=== PATIENT | female | born 1980 | race American Indian/Alaskan Native ===

== ENCOUNTER 2019-02-05 19:49 | Emergency (ER) | payer BC ==
[2019-02-05 19:55] VITALS: BP 121/80
[2019-02-05] MEDS ORDERED: DELTASONE PO ONE (20:15)
[2019-02-05] MEDS ORDERED: DUONEB *Not for PRN Use IH ONE (20:15)
--- NOTE | 2019-02-05 20:16 | Event Note ---
ED Screening Note Date of service: 02/06/19 Time: 20:12 ED Screening Note: This is a 39 y.o. F. that presents to the ER with SOB and chest tightness for 3 days. PMH of asthma Patient reports increased use of nebulizer and inhaler. LMP 01/04/2019 This initial assessment/diagnostic orders/clinical plan/treatment(s) is/are subject to change based on patients health status, clinical progression and re- assessment by fellow clinical providers in the ED. Further treatment and workup at subsequent clinical providers discretion. Patient/guardian urged not to elope from the ED as their condition may be serious if not clinically assessed and managed. Initial orders include: CXR Duoneb and prednisone
--- NOTE | 2019-02-05 21:25 | XRay Report ---
CHEST 2 VIEWS INDICATION / CLINICAL INFORMATION: MAIN: SOB and chest tightness SINCE WEDNESDAY. COMPARISON: None available. FINDINGS: SUPPORT DEVICES: None. HEART / MEDIASTINUM: No significant abnormality. LUNGS / PLEURA: No significant pulmonary or pleural abnormality. No pneumothorax. ADDITIONAL FINDINGS: No significant additional findings. IMPRESSION: 1. No acute findings. Signer Name: Jeffy Hammer MD Signed: 02/05/2019 9:20 PM Workstation Name: [id number]
--- NOTE | 2019-02-05 22:00 | Emergency Department Report ---
ED Asthma HPI - General Chief Complaint: Dyspnea/Respdistress Stated Complaint: SOB Time Seen by Provider: 02/05/19 20:12 Source: patient Mode of arrival: Ambulatory Limitations: No Limitations - History of Present Illness Initial Comments: Mrs. Marroquin is a 39 yo with hx of intermittent asthma who presents with shortness of breath wheezing nonproductive cough for 4 days. She has required 8 treatments per day for the last 4 days. Normally she has worsening asthma exacerbations in spring and fall. She is followed by [facility] medicine. I have reevaluated Mrs. Marroquin after she received nebulizer therapy and prednisone in the emergency department. She feels much better. MD Complaint: "asthma attack", shortness of breath -: Gradual, days(s) (4) Asthma History: adult onset (age 28) Severity: moderate Context: other (asthma exacerbations worse during fall and spring with change of weather ) Associated Symptoms: dry cough - Related Data Previous Rx's Medication Instructions Recorded Last Taken Type ALBUTEROL Inhaler (OR & NICU) 2 puff IH QID PRN #1 device 02/05/19 Unknown Rx [ProAir HFA Inhaler] ALBUTEROL NEB's [Proventil 0.083% 2.5 mg IH TID PRN #1 box 02/05/19 Unknown Rx NEBS] predniSONE [Deltasone] 3 tab PO QDAY 4 Days #9 tab 02/05/19 Unknown Rx Allergies Allergy/AdvReac Type Severity Reaction Status Date / Time Penicillins Allergy Unknown Verified 02/05/19 19:54 ED Review of Systems ROS: Stated complaint: SOB Other details as noted in HPI Comment: All other systems reviewed and negative Constitutional: denies: fever, malaise Respiratory: shortness of breath, wheezing ED Past Medical Hx - Past Medical History Previous Medical History?: Yes Hx Asthma: Yes - Family History Family history: hypertension - Social History Smoking Status: Never Smoker Substance Use Type: None - Medications Home Medications: Home Medications Medication Instructions Recorded Confirmed Last Taken Type ALBUTEROL Inhaler (OR & NICU) 2 puff IH QID PRN #1 device 02/05/19 Unknown Rx [ProAir HFA Inhaler] ALBUTEROL NEB's [Proventil 0.083% 2.5 mg IH TID PRN #1 box 02/05/19 Unknown Rx NEBS] predniSONE [Deltasone] 3 tab PO QDAY 4 Days #9 tab 02/05/19 Unknown Rx ED Physical Exam - General Limitations: No Limitations General appearance: alert, in no apparent distress, other (appears comfortable, talkative speaking full word sentences) - Head Head exam: Present: atraumatic, normocephalic - Eye Eye exam: Present: normal appearance - ENT ENT exam: Present: mucous membranes moist - Neck Neck exam: Present: normal inspection, full ROM. Absent: tenderness, meningismus - Respiratory Respiratory exam: Present: normal lung sounds bilaterally. Absent: respiratory distress, wheezes, rales, rhonchi - Cardiovascular Cardiovascular Exam: Present: regular rate, normal rhythm, normal heart sounds. Absent: systolic murmur, diastolic murmur, rubs, gallop - GI/Abdominal GI/Abdominal exam: Present: soft, normal bowel sounds. Absent: distended, tenderness, guarding, rebound - Extremities Exam Extremities exam: Present: normal inspection - Back Exam Back exam: Present: normal inspection - Neurological Exam Neurological exam: Present: alert, oriented X3 - Psychiatric Psychiatric exam: Present: normal affect, normal mood - Skin Skin exam: Present: warm, dry, intact, normal color. Absent: rash ED Course Vital Signs 02/05/19 02/05/19 02/05/19 19:54 19:56 20:11 Temperature 97.6 F 97.6 F Pulse Rate 85 86 Respiratory 22 18 Rate Blood Pressure 121/80 Blood Pressure 121/80 [Right] O2 Sat by Pulse 96 97 Oximetry ED Medical Decision Making - Medical Decision Making Asthma exacerbation improved with treatment in emergency department. Prescribed albuterol MDI, albuterol neb therapy and prednisone burst therapy. Instructed follow-up with her primary care physician at [facility] This week. Critical care attestation.: If time is entered above; I have spent that time in minutes in the direct care of this critically ill patient, excluding procedure time. ED Disposition Clinical Impression: Acute asthma exacerbation Disposition: DC-01 TO HOME OR SELFCARE Is pt being admited?: No Does the pt Need Aspirin: No Condition: Stable Instructions: Asthma (ED) Prescriptions: predniSONE [Deltasone] 3 tab PO QDAY 4 Days #9 tab ALBUTEROL Inhaler (OR & NICU) [ProAir HFA Inhaler] 2 puff IH QID PRN #1 device PRN Reason: Shortness Of Breath ALBUTEROL NEB's [Proventil 0.083% NEBS] 2.5 mg IH TID PRN #1 box PRN Reason: Wheezing Referrals: PRIMARY CARE, [Referring] - 2-3 Days Forms: Work/School Release Form(ED)
== END 2019-02-05 22:08 | disposition home or self-care (01) ==
LOC: ED 19:49
DX: J45.901 Unspecified asthma with (acute) exacerbation (principal); Z88.0 Allergy status to penicillin; Z79.899 Other long term (current) drug therapy
CPT/HCPCS: 71046; 94640; 99284; J7512

== ENCOUNTER 2020-01-03 11:12 | Emergency (ER) | payer BC ==
[2020-01-03 11:30] VITALS: BP 150/72
--- NOTE | 2020-01-03 11:40 | Emergency Department Report ---
ED Back Pain/Injury HPI - General Chief Complaint: Back Pain/Injury Stated Complaint: BACK AND HIP PAIN Time Seen by Provider: 01/03/20 11:31 Source: patient Limitations: No Limitations - History of Present Illness Initial Comments: This is a 39-year-old female nontoxic, well nourished in appearance, no acute signs of distress presents to the ED with c/o of acute on chronic lower back pain. Patient stated that the past 2 days she was moving and developed this pain. Stated has radiation to bilateral hip areas. Patient denies any trauma. Denies any bladder or bowel instability. Patient denies any urinary symptoms. Denies any fever, chills, nausea, vomiting, headache, stiff neck, chest pain or shortness of breath. Patient denies any numbness or tingling. Denies any allergies. MD Complaint: back pain -: days(s) Similar Symptoms Previously: Yes Place: home Radiation: left leg, right leg Severity: mild Severity scale (0 -10): 3 Quality: aching Consistency: intermittent Improves With: immobilization, sitting upright Worsens With: movement, walking Context: while lifting, turning/twisting Associated Symptoms: denies other symptoms. denies: confusion, weakness, chest pain, numbness, difficulty walking, cough, difficulty urinating, diaphoresis, incontinence, fever/chills, constipation, headaches, abdominal pain, loss of appetite, malaise, nausea/vomiting, rash, seizure, shortness of breath, syncope - Related Data Previous Rx's Medication Instructions Recorded Last Taken Type ALBUTEROL NEB's [Proventil 0.083% 2.5 mg IH TID PRN #1 box 02/05/19 Unknown Rx NEBS] Albuterol Mdi (or & Nicu Only) 2 puff IH QID PRN #1 device 02/05/19 Unknown Rx [ProAir HFA Inhaler] predniSONE [Deltasone] 3 tab PO QDAY 4 Days #9 tab 02/05/19 Unknown Rx Cyclobenzaprine [Flexeril] 10 mg PO QHS PRN #10 tablet 01/03/20 Unknown Rx Naproxen 500 mg PO Q12H PRN #12 tablet 01/03/20 Unknown Rx Allergies Allergy/AdvReac Type Severity Reaction Status Date / Time Penicillins Allergy Unknown Verified 01/03/20 11:27 ED Review of Systems ROS: Stated complaint: BACK AND HIP PAIN Other details as noted in HPI Constitutional: denies: chills, fever Eyes: denies: eye pain, eye discharge, vision change ENT: denies: ear pain, throat pain Respiratory: denies: cough, shortness of breath, wheezing Cardiovascular: denies: chest pain, palpitations Endocrine: no symptoms reported Gastrointestinal: denies: abdominal pain, nausea, diarrhea Genitourinary: denies: urgency, dysuria, discharge Musculoskeletal: back pain. denies: joint swelling, arthralgia Skin: denies: rash, lesions Neurological: denies: headache, weakness, paresthesias Psychiatric: denies: anxiety, depression Hematological/Lymphatic: denies: easy bleeding, easy bruising ED Past Medical Hx - Past Medical History Hx Asthma: Yes - Social History Smoking Status: Never Smoker Substance Use Type: None - Medications Home Medications: Home Medications Medication Instructions Recorded Confirmed Last Taken Type ALBUTEROL NEB's [Proventil 0.083% 2.5 mg IH TID PRN #1 box 02/05/19 Unknown Rx NEBS] Albuterol Mdi (or & Nicu Only) 2 puff IH QID PRN #1 device 02/05/19 Unknown Rx [ProAir HFA Inhaler] predniSONE [Deltasone] 3 tab PO QDAY 4 Days #9 tab 02/05/19 Unknown Rx Cyclobenzaprine [Flexeril] 10 mg PO QHS PRN #10 tablet 01/03/20 Unknown Rx Naproxen 500 mg PO Q12H PRN #12 tablet 01/03/20 Unknown Rx ED Physical Exam - General Limitations: No Limitations General appearance: alert, in no apparent distress - Head Head exam: Present: atraumatic, normocephalic - Eye Eye exam: Present: normal appearance - Neck Neck exam: Present: normal inspection, full ROM. Absent: tenderness, meningismus, lymphadenopathy - Respiratory Respiratory exam: Absent: respiratory distress - Cardiovascular Cardiovascular Exam: Present: regular rate - Extremities Exam Extremities exam: Present: normal inspection, full ROM, normal capillary refill. Absent: tenderness - Back Exam Back exam: Present: normal inspection, full ROM, paraspinal tenderness (lumbar paraspinal). Absent: tenderness, CVA tenderness (R), CVA tenderness (L), muscle spasm, vertebral tenderness, rash noted - Expanded Back Exam Expanded Back exam: Absent: saddle anesthesia Back exam: Negative Straight Leg Raising: Left, Right - Neurological Exam Neurological exam: Present: alert, oriented X3, normal gait - Psychiatric Psychiatric exam: Present: normal affect, normal mood - Skin Skin exam: Present: warm, dry, intact, normal color. Absent: rash ED Course Vital Signs 01/03/20 11:29 Temperature 98.2 F Pulse Rate 67 Respiratory 18 Rate Blood Pressure 150/72 O2 Sat by Pulse 100 Oximetry - Reevaluation(s) Reevaluation #1: 01/03/20 11:39 Patient is speaking in full sentences with no signs of distress noted. ED Medical Decision Making - Medical Decision Making This is a 39-year-old female that presents with low back strain. Patient is stable was examined by me. There is no spinal tenderness. There is no cauda equina syndrome during examination. No bladder or bowel instability. Patient is discharged with muscle relaxant and NSAID. Patient was instructed not to operate any machinery while taking muscle relaxant as they cause her drowsiness. Patient was referred to Follow-up with a primary care doctor in 3-5 days or if symptoms worsen and continue return to emergency room as soon as possible. At time of discharge, the patient does not seem toxic or ill in appearance. No acute signs of distress noted. Patient agrees to discharge treatment plan of care. No further questions noted by the patient. Critical care attestation.: If time is entered above; I have spent that time in minutes in the direct care of this critically ill patient, excluding procedure time. ED Disposition Clinical Impression: Low back strain Qualifiers: Encounter type: initial encounter Qualified Code(s): S39.012A - Strain of muscle, fascia and tendon of lower back, initial encounter Disposition: DC- TO HOME OR SELFCARE Is pt being admited?: No Does the pt Need Aspirin: No Condition: Stable Instructions: Low Back Strain (ED), Cyclobenzaprine (By mouth) Additional Instructions: Follow-up with a primary care doctor in 3-5 days or if symptoms worsen and continue return to emergency room as soon as possible. Prescriptions: Cyclobenzaprine [Flexeril] 10 mg PO QHS PRN #10 tablet PRN Reason: Muscle Spasm Naproxen 500 mg PO Q12H PRN #12 tablet PRN Reason: Pain , Severe (7-10) Referrals: PRIMARY CARE, [Referring] - 3-5 Days JENNIFER FATIMA MD [Staff Physician] - 3-5 Days Forms: Work/School Release Form(ED)
== END 2020-01-03 11:45 | disposition home or self-care (01) ==
LOC: ED 11:12
DX: S39.012A Strain of muscle, fascia and tendon of lower back, initial encounter (principal); J45.909 Unspecified asthma, uncomplicated; Z79.899 Other long term (current) drug therapy; Z88.0 Allergy status to penicillin; X58.XXXA Exposure to other specified factors, initial encounter; Y93.89 Activity, other specified; Y92.89 Other specified places as the place of occurrence of the external cause; Y99.8 Other external cause status
CPT/HCPCS: 99282

== ENCOUNTER 2020-05-28 01:32 | Observation (INO) | payer BC, OTHER ==
--- NOTE | 2020-05-28 01:38 | Emergency Department Report ---
Blank Doc - Documentation Documentation: 40-year-old female that presents with chest pain and shortness of breath. 1- This initial assessment/diagnostic orders/clinical plan/ treatment(s) is/are subject to change based on pt's health status, clinical progression and re- assessment by fellow clinical providers in the ED. Further treatment and workup at subsequent clinical provers discretion. Patient/guardians urged not to elope from ED as their condition may be serious if not clinically assessed and managed. 2-cardiac work-up
[2020-05-28 02:05] LABS: Basophils # (Auto) 0.1 K/mm3 (0.0-0.1); Basophils % (Auto) 0.8 % (0.0-1.8); Eosinophils # (Auto) 0.4 K/mm3 (0.0-0.4); Eosinophils % (Auto) 3.3 % (0.0-4.3); Hematocrit 41.5 % (30.3-42.9); Hemoglobin 13.5 gm/dl (10.1-14.3); Lymphocytes % (Auto) 22.3 % (13.4-35.0); Mean Corpuscular HGB Conc 33 % (30-34); Mean Corpuscular Volume 85 fl (79-97); Monocytes # (Auto) 0.7 K/mm3 (0.0-0.8); Monocytes % (Auto) 5.2 % (0.0-7.3); Platelet Count 265 K/mm3 (140-440); Red Blood Count 4.87 M/mm3 (3.65-5.03); Red Cell Distribution Width 14.9 % (13.2-15.2)
[2020-05-28 02:15] LABS: INR 1.25 (0.87-1.13); Partial Thromboplastin Time 25.3 Sec. (24.2-36.6)
[2020-05-28 02:21] LABS: Alanine Aminotransferase 30 units/L (7-56); BUN/Creatinine Ratio 12; Blood Urea Nitrogen 11 mg/dL (7-17); Calcium 8.7 mg/dL (8.4-10.2); Hemolysis Index 31
[2020-05-28 03:17] LABS: Bacteria,Urine 1+ /HPF (Negative); Bilirubin,Urine NEG (Negative); Blood,Urine NEG (Negative); Color,Urine Yellow (Yellow); Mucus,Urine 1+ /HPF; Protein,Urine <15 mg/dL mg/dL (Negative); Urobilinogen,Urine < 2.0 mg/dL (<2.0)
--- NOTE | 2020-05-28 03:19 | XRay Report ---
CHEST 2 VIEWS INDICATION / CLINICAL INFORMATION: Chest Pain. COMPARISON: 02/05/19 FINDINGS: SUPPORT DEVICES: None. HEART / MEDIASTINUM: No significant abnormality. LUNGS / PLEURA: No significant pulmonary or pleural abnormality. No pneumothorax. ADDITIONAL FINDINGS: No significant additional findings. IMPRESSION: 1. No acute findings. No change. Signer Name: Antonio Duran MD Signed: 05/28/2020 3:14 AM Workstation Name: [id number]
[2020-05-28] MEDS ORDERED: NITROGLYCERIN 2% OINT 1 GM TP ONE (04:06)
[2020-05-28] MEDS ORDERED: fentaNYL 100 MCG/2 ML INJ IV ONE (04:06)
[2020-05-28] MEDS ORDERED: ONDANSETRON 4 MG/2 ML INJ IV ONE (04:06)
[2020-05-28] MEDS ORDERED: ASPIRIN 325 MG TAB PO ONE (04:06)
--- NOTE | 2020-05-28 04:13 | Emergency Department Report ---
HPI - General Chief Complaint: Chest Pain Time Seen by Provider: 05/28/20 01:36 - HPI HPI: Room 44 The patient is a 40-year-old female present with a chief complaint of chest pain. The patient states she awakened this evening with substernal chest pain that was dull and sharp in nature. Patient states the pain is been constant but waxes and wanes. The patient currently gives her pain a score of 3/10. Patient states she has had shortness of breath and nausea without vomiting associated with her chest pain. Patient denies diaphoresis. Patient denies history of fever or cough. The patient states she took 2 aspirin prior to arrival but cannot recall the doses. The patient states she has a mother who had KS at age 56. The patient states she recently had 2 family members . Patient states she is never had a stress test or cardiac catheterization ED Past Medical Hx - Past Medical History Previous Medical History?: Yes Hx Asthma: Yes - Surgical History Past Surgical History?: Yes Hx Breast Surgery: Yes (biopsy-benign) - Family History Family history: no significant - Social History Smoking Status: Never Smoker Substance Use Type: None (Denies illicit drug use), Alcohol (Occasional) - Medications Home Medications: Home Medications Medication Instructions Recorded Confirmed Last Taken Type ALBUTEROL NEB's [Proventil 0.083% 2.5 mg IH TID PRN #1 box 02/05/19 Unknown Rx NEBS] Albuterol Mdi (or & Nicu Only) 2 puff IH QID PRN #1 device 02/05/19 Unknown Rx [ProAir HFA Inhaler] predniSONE [Deltasone] 3 tab PO QDAY 4 Days #9 tab 02/05/19 Unknown Rx Cyclobenzaprine [Flexeril] 10 mg PO QHS PRN #10 tablet 01/03/20 Unknown Rx Naproxen 500 mg PO Q12H PRN #12 tablet 01/03/20 Unknown Rx ED Review of Systems ROS: Stated complaint: CHEST PAIN Other details as noted in HPI Constitutional: denies: diaphoresis Eyes: denies: eye pain ENT: denies: throat pain Respiratory: shortness of breath Cardiovascular: chest pain Endocrine: no symptoms reported Gastrointestinal: nausea. denies: vomiting Genitourinary: denies: dysuria Musculoskeletal: denies: back pain Neurological: denies: headache Physical Exam - Physical Exam Vital Signs: Vital Signs 05/28/20 05/28/20 01:38 03:38 Temperature 97.4 F L Pulse Rate 97 H 72 Respiratory 24 20 Rate Blood Pressure 138/83 O2 Sat by Pulse 96 100 Oximetry Physical Exam: GENERAL: The patient is well-developed well-nourished female sitting on stretch er not appearing to be in acute distress. [] HEENT: Normocephalic. Atraumatic. Extraocular motions are intact. Patient has moist mucous membranes. NECK: Supple. Trachea midline CHEST/LUNGS: Clear to auscultation. There is no respiratory distress noted. HEART/CARDIOVASCULAR: Regular. There is no tachycardia. There is no gallop rub or murmur. ABDOMEN: Abdomen is soft, nontender. Patient has normal bowel sounds. There is no abdominal distention. SKIN: There is no rash. There is no edema. There is no diaphoresis. NEURO: The patient is awake, alert, and oriented. The patient is cooperative. The patient has normal speech MUSCULOSKELETAL: There is no evidence of acute injury. ED Course Vital Signs 05/28/20 05/28/20 01:38 03:38 Temperature 97.4 F L Pulse Rate 97 H 72 Respiratory 24 20 Rate Blood Pressure 138/83 O2 Sat by Pulse 96 100 Oximetry ED Medical Decision Making - Lab Data Result diagrams: 05/28/20 01:42 05/28/20 01:42 - EKG Data -: EKG Interpreted by Me EKG shows normal: sinus rhythm Rate: normal - EKG Data When compared to previous EKG there are: previous EKG unavailable Interpretation: nonspecific ST-T wave kamran (T wave inversion in lead III) - Radiology Data Radiology results: report reviewed (Chest x-ray), image reviewed (Chest x-ray) interpreted by me: Chest x-ray-no focal infiltrates, no pneumothorax. No foreign body seen CHEST 2 VIEWS INDICATION / CLINICAL INFORMATION: Chest Pain. COMPARISON: FINDINGS: SUPPORT DEVICES: None. HEART / MEDIASTINUM: No significant abnormality. LUNGS / PLEURA: No significant pulmonary or pleural abnormality. No pneumothorax. ADDITIONAL FINDINGS: No significant additional findings. IMPRESSION: 1. No acute findings. No change. Signer Name: Antonio Duran MD Signed: 05/28/2020 2:14 AM Workstation Name: [id number] - Differential Diagnosis ACS, anxiety, pericarditis, GERD Critical care attestation.: If time is entered above; I have spent that time in minutes in the direct care of this critically ill patient, excluding procedure time. ED Disposition Clinical Impression: Chest pain Disposition: OP ADMIT IP TO THIS HOSP Is pt being admited?: Yes Does the pt Need Aspirin: Yes Condition: Fair Instructions: Chest Pain (ED) Referrals: LEVI WHITAKER NP-C [Primary Care Provider] - 3-5 Days Time of Disposition: 04:16 (Hospitalist paged (Dr Palomares)) HEART Score - HEART Score History: Moderately suspicious EKG: Non-specific Age: < 45 Risk factors: 1-2 risk factors Troponin: Troponin T < 0.010 ng/mL (0.00-0.029) 05/28/20 01:42 Troponin: 1-3x normal limit HEART Score: 4
[2020-05-28] MEDS ORDERED: NITROGLYCERIN 0.4 MG TAB SUBL SL PRN (05:17)
[2020-05-28] MEDS ORDERED: MORPHINE 2 MG/1 ML INJ IV PRN (05:17)
[2020-05-28] MEDS ORDERED: ACETAMINOPHEN 325 MG TAB PO PRN ×2 (05:17)
[2020-05-28] MEDS ORDERED: ONDANSETRON 4 MG/2 ML INJ IV PRN (05:17)
--- NOTE | 2020-05-28 05:29 | History and Physical Report ---
History of Present Illness Date of examination: 05/28/20 Date of admission: 05/28/20 04:30 Chief complaint: Chest Pain History of present illness: 80-year-old female with known history of asthma presented to the emergency room today complaining of chest pain. Chest pain is said to be substernal, dull and at times sharp in nature. On a scale of 10 pain was about 5/10 in severity. She has had some associated shortness of breath and some nausea. She denies any vomiting, no abdominal pain, no headache or dizziness, no diaphoresis. Patient indicates that she took 2 aspirin prior to reporting to the emergency room - dose unknown. She indicates she had a lot of stress in her life lately with multiple deaths in the family. Work up in the Emergency room so far has been unremarkable. Patient admitted for chest pain work up. Past History Past Medical History: other (Asthma) Past Surgical History: Other (Breast biopsy) Social history: alcohol abuse (Occasional alcohol) Family history: CAD (Mother had MA at age 56) Medications and Allergies Allergies Allergy/AdvReac Type Severity Reaction Status Date / Time Penicillins Allergy Unknown Verified 01/03/20 11:27 Home Medications Medication Instructions Recorded Confirmed Last Taken Type ALBUTEROL NEB's [Proventil 0.083% 2.5 mg IH TID PRN #1 box 02/05/19 Unknown Rx NEBS] Albuterol Mdi (or & Nicu Only) 2 puff IH QID PRN #1 device 02/05/19 Unknown Rx [ProAir HFA Inhaler] predniSONE [Deltasone] 3 tab PO QDAY 4 Days #9 tab 02/05/19 Unknown Rx Cyclobenzaprine [Flexeril] 10 mg PO QHS PRN #10 tablet 01/03/20 Unknown Rx Naproxen 500 mg PO Q12H PRN #12 tablet 01/03/20 Unknown Rx Review of Systems Constitutional: no fever, no chills Ears, nose, mouth and throat: no nasal congestion, no sore throat Cardiovascular: chest pain, no palpitations Respiratory: shortness of breath, no cough Gastrointestinal: nausea, no abdominal pain, no vomiting, no diarrhea Genitourinary Female: no flank pain, no dysuria, no hematuria, no nocturia Musculoskeletal: no neck pain, no low back pain Integumentary: no rash, no pruritis Neurological: no headaches, no confusion Psychiatric: no anxiety, no depression Exam - Constitutional Vitals: Temp Pulse Resp BP Pulse Ox 97.9 F 72 20 109/70 98 05/28/20 05:05 05/28/20 05:05 05/28/20 05:05 05/28/20 05:05 05/28/20 05:05 General appearance: Present: no acute distress, well-nourished, obese - EENT Eyes: Present: PERRL, EOM intact. Absent: scleral icterus ENT: hearing intact, clear oral mucosa, dentition normal - Neck Neck: Present: supple, normal ROM - Respiratory Respiratory effort: normal Respiratory: bilateral: CTA - Cardiovascular Rhythm: regular Heart Sounds: Present: S1 & S2. Absent: gallop, systolic murmur, diastolic m urmur, rub - Extremities Extremities: no ischemia, pulses intact, pulses symmetrical, No edema, Full ROM Peripheral Pulses: within normal limits - Abdominal General gastrointestinal: Present: soft, non-tender, non-distended, normal bowel sounds. Absent: mass - Integumentary Integumentary: Present: clear, warm, dry. Absent: rash - Musculoskeletal Musculoskeletal: strength equal bilaterally - Psychiatric Psychiatric: appropriate mood/affect, intact judgment & insight, memory intact, cooperative - Neurologic Neurologic: CNII-XII intact, no focal deficits, moves all extremities HEART Score - HEART Score History: Moderately suspicious EKG: Non-specific Age: < 45 Risk factors: 1-2 risk factors Troponin: Troponin T < 0.010 ng/mL (0.00-0.029) 05/28/20 04:35 Troponin: 1-3x normal limit HEART Score: 4 Results - Labs CBC & Chem 7: 05/28/20 01:42 05/28/20 01:42 Labs: Abnormal lab results 05/28/20 05/28/20 05/28/20 Range/Units 01:42 01:42 01:42 WBC 13.5 H (4.5-11.0) K/mm3 Seg Neutrophils # 9.3 H (1.8-7.7) K/mm3 PT 15.7 H (12.2-14.9) Sec. INR 1.25 H (0.87-1.13) Sodium 134 L (137-145) mmol/L Carbon Dioxide 20 L (22-30) mmol/L Glucose 124 H (65-100) mg/dL Assessment and Plan - Patient Problems (1) Chest pain Current Visit: Yes Status: Acute Plan to address problem: Patient admitted and placed on telemetry. Will check serial cardiac enzymes. Patient started on aspirin, sublingual nitroglycerin and IV morphine as needed for chest pain. We will place consult to cardiology for evaluation and recommendation. (2) History of asthma Current Visit: Yes Status: Acute Plan to address problem: We will continue patient on her routine home medications. (3) DVT prophylaxis Current Visit: Yes Status: Acute (4) Full code status Current Visit: Yes Status: Acute Plan to address problem: Patient is a full code.
[2020-05-28] MEDS ORDERED: ALBUTEROL 2.5 MG/3 ML NEBU IH PRN (05:54)
[2020-05-28 06:09] LABS: Basophils # (Auto) 0.1 K/mm3 (0.0-0.1); Basophils % (Auto) 0.8 % (0.0-1.8); Eosinophils # (Auto) 0.4 K/mm3 (0.0-0.4); Hematocrit 38.3 % (30.3-42.9); Hemoglobin 12.6 gm/dl (10.1-14.3); Lymphocytes % (Auto) 27.4 % (13.4-35.0); Mean Corpuscular HGB Conc 33 % (30-34); Mean Corpuscular Volume 85 fl (79-97); Monocytes # (Auto) 0.6 K/mm3 (0.0-0.8); Monocytes % (Auto) 5.1 % (0.0-7.3); Platelet Count 223 K/mm3 (140-440); Red Blood Count 4.49 M/mm3 (3.65-5.03); Red Cell Distribution Width 14.6 % (13.2-15.2)
[2020-05-28 06:30] LABS: BUN/Creatinine Ratio 11; Blood Urea Nitrogen 10 mg/dL (7-17); Calcium 8.1 mg/dL (8.4-10.2); Hemolysis Index 4
[2020-05-28 06:33] LABS: Chol/HDL Ratio 3.24 %
[2020-05-28] MEDS ORDERED: REGADENOSON 0.4 MG/5 ML INJ IV ONE ×2 (09:19→09:20)
--- NOTE | 2020-05-28 11:20 | Discharge Summary ---
Providers - Providers Date of Admission: 05/28/20 04:30 Date of discharge: 05/28/20 Attending physician: JONATAN DALTON 05/28/20 Consult to Cardiac Rehabilitation [CONS] Routine Reason For Exam: Phase I 05/28/20 05:20 Consult to Cardiology [CONS] Routine Consulting Provider: THU DOE Reason For Exam: chest pain Primary care physician: LEVI WHITAKER Hospitalization Condition: Fair Hospital course: Pt presented to the ER c/o chest pain, KRUNAL and nausea. CP x 1 day described as 5/10 dull, substernal and intermittently sharp, not worse with inspiration or reproducible by palpation. Pt denies any pre existing CAD, HTN, dizziness, fever or cough. AMI ruled out: Troponins: Negative x 2, 12L no ischemic changes. 05/28/2020 Lexiscan MPI Stress Test: Negative Echo reviewed: EF 50-55%, impaired relaxation Currently stable cardiac status. Okay to discharge from cardiology standpoint Recommend f/u in our office with Dr. Doe within 1-2 weeks Discharge diagnosis: Chest pAIN, likely GERD h/o asthma, stable Disposition: DC-01 TO HOME OR SELFCARE Time spent for discharge: 34 minutes Exam - Constitutional Vitals: Temp Pulse Resp BP Pulse Ox 97.3 F L 58 L 18 118/69 98 05/28/20 08:55 05/28/20 08:55 05/28/20 08:55 05/28/20 09:37 05/28/20 08:55 Plan Activity: advance as tolerated Weight Bearing Status: Weight Bear as Tolerated Diet: low fat, low salt Follow up with: LEVI WHITAKER, RENATO-C [Primary Care Provider] - 3-5 Days THU DOE MD [Staff Physician] - 7 Days Prescriptions: Pantoprazole [Protonix] 40 mg PO QDAY #30 tablet
[2020-05-28 12:09] VITALS: BP 120/67
--- NOTE | 2020-05-28 12:17 | Consultation ---
History of Present Illness Consult date: 05/28/20 Requesting physician: MERON BOND Consult reason: chest pain History of present illness: 40 y/o female with significant hx of asthma, FHx premature CAD & AMI. Pt presented to the ER c/o chest pain, KRUNAL and nausea. CP x 1 day described as 5/10 dull, substernal and intermittently sharp, not worse with inspiration or r eproducible by palpation. Pt denies any pre existing CAD, HTN, dizziness, fever or cough. AMI ruled out: Troponins: Negative x 2, 12Lead ecg no ischemic changes. Past History Past Medical History: other (Asthma) Past Surgical History: Other (Breast biopsy) Social history: alcohol abuse (Occasional alcohol) Family history: CAD (Mother had DC at age 56) Medications and Allergies Allergies Allergy/AdvReac Type Severity Reaction Status Date / Time Penicillins Allergy Unknown Verified 01/03/20 11:27 Home Medications Medication Instructions Recorded Confirmed Last Taken Type Albuterol Mdi (or & Nicu Only) 2 puff IH QID PRN #1 device 02/05/19 05/28/20 05/27/20 Rx [ProAir HFA Inhaler] Pantoprazole [Protonix] 40 mg PO QDAY #30 tablet 05/28/20 Unknown Rx Active Meds: Active Medications Acetaminophen (Acetaminophen 325 Mg Tab) 650 mg PO Q4H PRN PRN Reason: Pain MILD(1-3)/Fever >100.5/CUELLAR Albuterol (Albuterol 2.5 Mg/3 Ml Nebu) 2.5 mg IH TIDRT PRN PRN Reason: Wheezing Aspirin (Aspirin Ec 325 Mg Tab) 325 mg PO QDAY MICHAEL Morphine Sulfate (Morphine 2 Mg/1 Ml Inj) 2 mg IV Q5MIN PRN PRN Reason: Chest Pain Nitroglycerin (Nitroglycerin 0.4 Mg Tab Subl) 0.4 mg SL Q5M PRN PRN Reason: Chest Pain Ondansetron HCl (Ondansetron 4 Mg/2 Ml Inj) 4 mg IV Q8H PRN PRN Reason: Nausea And Vomiting Sodium Chloride (Sodium Chloride 0.9% 10 Ml Flush Syringe) 10 ml IV BID MICHAEL Sodium Chloride (Sodium Chloride 0.9% 10 Ml Flush Syringe) 10 ml IV PRN PRN PRN Reason: LINE FLUSH Review of Systems Constitutional: no weight loss, no weight gain, no fever, no chills, no sweats Ears, nose, mouth and throat: no ear pain, no ear discharge, no nose pain, no nasal congestion, no nasal discharge, no sinus pressure, no sinus pain Cardiovascular: chest pain, shortness of breath, no palpitations, no rapid/irregular heart beat, no edema, no syncope, no lightheadedness Respiratory: shortness of breath, no cough, no hemoptysis, no dyspnea on exertion Gastrointestinal: nausea, no abdominal pain, no vomiting, no diarrhea, no cons tipation Musculoskeletal: no neck stiffness, no neck pain, no shooting arm pain, no arm numbness/tingling, no low back pain, no shooting leg pain, no leg numbness/tingling Integumentary: no rash, no pruritis, no redness, no sores, no wounds Neurological: no head injury, no paralysis, no weakness, no parathesias, no numbness, no tingling, no seizures, no syncope Psychiatric: no anxiety Endocrine: no cold intolerance, no heat intolerance Hematologic/Lymphatic: no easy bruising, no easy bleeding Allergic/Immunologic: no urticaria Physical Examination Last Vital Signs Temp 97.4 F L 05/28/20 12:09 Pulse 57 L 05/28/20 12:09 Resp 18 05/28/20 12:09 BP 120/67 05/28/20 12:09 Pulse Ox 100 05/28/20 12:09 General appearance: no acute distress HEENT: Positive: PERRL Neck: Positive: neck supple, trachea midline Cardiac: Positive: Reg Rate and Rhythm, S1/S2 Lungs: Positive: Normal Exam, Normal Breath Sounds, No Wheeze, Rales, Rhonchi Neuro: Positive: Grossly Intact Abdomen: Positive: Unremarkable Skin: Negative: Rash, Wound Extremities: Present: upper extr. pulses, lower extr. pulses. Absent: edema Results 05/28/20 05:48 05/28/20 05:48 Cardiac Enzymes 05/28/20 Range/Units 01:42 AST 23 (5-40) units/L Coagulation 05/28/20 Range/Units 01:42 PT 15.7 H (12.2-14.9) Sec. INR 1.25 H (0.87-1.13) APTT 25.3 (24.2-36.6) Sec. Lipids 05/28/20 Range/Units 05:48 Triglycerides 53 (2-149) mg/dL Cholesterol 159 (50-199) mg/dL HDL Cholesterol 49 (40-59) mg/dL Cholesterol/HDL Ratio 3.24 % CBC 05/28/20 05/28/20 Range/Units 01:42 05:48 WBC 13.5 H 10.9 (4.5-11.0) K/mm3 RBC 4.87 4.49 (3.65-5.03) M/mm3 Hgb 13.5 12.6 (10.1-14.3) gm/dl Hct 41.5 38.3 (30.3-42.9) % Plt Count 265 223 (140-440) K/mm3 Lymph # (Auto) 3.0 3.0 (1.2-5.4) K/mm3 [place] # (Auto) 0.7 0.6 (0.0-0.8) K/mm3 Eos # (Auto) 0.4 0.4 (0.0-0.4) K/mm3 Baso # (Auto) 0.1 0.1 (0.0-0.1) K/mm3 Comprehensive Metabolic Panel 05/28/20 05/28/20 Range/Units 01:42 05:48 Sodium 134 L 137 (137-145) mmol/L Potassium 4.2 4.0 (3.6-5.0) mmol/L Chloride 102.1 105.5 (98-107) mmol/L Carbon Dioxide 20 L 24 (22-30) mmol/L BUN 11 10 (7-17) mg/dL Creatinine 0.9 0.9 (0.6-1.2) mg/dL Glucose 124 H 123 H (65-100) mg/dL Calcium 8.7 8.1 L (8.4-10.2) mg/dL AST 23 (5-40) units/L ALT 30 (7-56) units/L Alkaline Phosphatase 84 (35-129) units/L Total Protein 7.2 (6.3-8.2) g/dL Albumin 4.0 (3.9-5) g/dL - Imaging and Cardiology Echo: report reviewed (Echo reviewed: EF 50-55%, impaired relaxation) EKG: report reviewed, image reviewed EKG interpretations - Telemetry EKG Rhythm: Sinus Rhythm - EKG Sinus rhythms and dysrhythmias: sinus rhythm Assessment and Plan Pt presented to the ER c/o chest pain, KRUNAL and nausea. CP x 1 day described as 5/10 dull, substernal and intermittently sharp, not worse with inspiration or reproducible by palpation. Pt denies any pre existing CAD, HTN, dizziness, fever or cough. AMI ruled out: Troponins: Negative x 2, 12L no ischemic changes. 05/28/2020 Lexiscan MPI Stress Test: Negative Echo reviewed: EF 50-55%, impaired relaxation Currently stable cardiac status. Okay to discharge from cardiology standpoint Recommend f/u in our office with Dr. Scott within 1-2 weeks Pt seen in conjunction with Dr Scott, who agrees with this assessment and plan of care. - Patient Problems (1) Chest pain Current Visit: Yes Status: Acute (2) Shortness of breath Current Visit: Yes Status: Acute (3) Nausea Current Visit: Yes Status: Acute (4) History of asthma Current Visit: Yes Status: Chronic
[2020-05-29] MEDS ORDERED: ASPIRIN EC 325 MG TAB PO SCH (10:00)
--- NOTE | 2020-05-31 11:37 | Treadmill Report ---
PHARMACOLOGICAL MYOCARDIAL PERFUSION IMAGING REPORT The patient is a 40-year-old female who presented to the Emergency Room with history of asthma and history of premature coronary artery disease in the family. He was admitted with chest pain and difficulty in breathing and nausea of 1 day duration. Troponins were negative. Presently, myocardial perfusion imaging being performed for evaluation of atypical chest pains. The patient's baseline EKG showed sinus rhythm within normal limits. The patient received IV regadenoson 0.4 mg for vasodilation. The patient tolerated the regadenoson well without any side effects. No significant EKG changes noted. No chest pain during the procedure. The patient has resting myocardial perfusion images using technetium 99m sestamibi. Post-vasodilation, the patient had perfusion images using the same agent along with gating. Following findings were noted. Transient ischemic dilation ratio was found to be 1.5. Left ventricular end-diastolic volume is 94 mL and end-systolic volume 36 mL with a calculated ejection fraction of 62%. Normal left ventricular systolic function noted. Stress images showed a mild fixed mid and apical inferolateral defect. However, also small fixed apical defect was noted. Similar findings were noted on the resting images. FINAL IMPRESSION: 1. The patient tolerated the IV regadenoson well without any significant side effects. 2. EKG showed sinus rhythm with no significant changes to suggest ischemia. 3. The patient did not have any chest pain. 4. Myocardial perfusion imaging showed mild fixed defects in the inferolateral and apical areas, but these appeared to be fixed without any reversibility. Overall, no significant ischemia noted. 5. Normal left ventricular systolic function noted with a calculated left ventricular ejection fraction of 62%. Prognostically, this is a low-risk study. JOB# [id number] LIZZETTE/DANUTA HARDEN
== END 2020-05-28 15:38 | disposition home or self-care (01) ==
LOC: ED 01:32 → 4A 04:30
PROVIDERS: ADMIT Internal Medicine Geriatric Medicine; ATTEND Internal Medicine
DX: R07.89 Other chest pain (principal); J45.909 Unspecified asthma, uncomplicated; R11.0 Nausea; Z98.890 Other specified postprocedural states; Z79.82 Long term (current) use of aspirin
CPT/HCPCS: 36415; 71046; 78452; 80053; 80061; 81001; 83735; 84484; 84703; 85025; 85610; 85730; 93005; 93017; 93306; 96374; 96375; 99285; A9502; G0378; J2405; J2785; J3010; 80048